=== PATIENT | female | born 1940 | race Caucasian/White ===

== ENCOUNTER → 2018-01-26 | Outpatient (CLI) | payer OTHER ==
[~2018-01-26] MED LIST: ALENDRONATE; ALPRAZOLAM 0.0.25 M1 PO; ANTIVERT25 MG PO; ASPIR 8181 MG PO; DESYREL100 MG; FISH OIL 1,2001 EAC4 PO; HYDROCODONE-AP1 EAC6 PO; KLOR-CON 1010 MEQ PO; LOVASTATIN; MULTIVITAMINS1 EAC7 PO; MYRBETRIQ25 MG PO; NASACORT10.8 ML NASAL; NORCO 5-325 TA1 EACH PO; PRAVACHOL40 MG PO; STRONTIUM PO; TRAZODONE HCL100 MG PO; TRAZODONE HCL50 MG PO; TUMS PO; VALIUM5 MG PO; ZOFRAN ODT4 MG DISSOLVE; [UNRECOGNIZED DRUG - OTHER] PO
== END ==
LOC: M.RAD 09:28
DX: Z12.31 Encounter for screening mammogram for malignant neoplasm of breast (principal); E78.00 Pure hypercholesterolemia, unspecified

== ENCOUNTER 2018-02-19 08:59 | Emergency (ER) | payer OTHER ==
[~2018-02-19] VITALS: Ht 154.9 cm; Wt 61.2 kg
[~2018-02-19 08:59] MED LIST changes: -ANTIVERT25 MG PO; -ASPIR 8181 MG PO; -KLOR-CON 1010 MEQ PO; -TRAZODONE HCL50 MG PO; -TUMS PO; -ZOFRAN ODT4 MG DISSOLVE
[2018-02-19] MEDS ORDERED: TUMS PO (09:11)
[2018-02-19] MEDS ORDERED: TRAZODONE HCL50 MG PO (09:11)
[2018-02-19] MEDS ORDERED: ASPIR 8181 MG PO (09:11)
[2018-02-19] MEDS ORDERED: KLOR-CON 1010 MEQ PO (09:11)
[2018-02-19 09:37] LABS: ABSOLUTE BASOPHILS 0.1 thou/uL (0.0-0.2); ABSOLUTE EOSINOPHILS 0.2 thou/uL (0.0-0.7); ABSOLUTE MONOCYTES 0.4 thou/uL (0.0-1.2); ABSOLUTE NEUTROPHILS 2.1 thou/uL (1.6-8.1); BASOPHILS 1.8 %; EOSINOPHILS 5.3 %; HEMATOCRIT 38.3 % (37.0-47.0); LYMPHOCYTES 27.2 %; MCH 32.7 pg (26.0-34.0); MCHC 33.9 g/dL (28.0-37.0); MCV 96.4 fL (80.0-100.0); MONOCYTES 9.8 %; MPV 8.6 fl. (7.2-11.1); NUCLEATED RBCS 0 /100WBC; PLATELET COUNT* 183 thou/uL (150-400); POLYS 55.9 %; RBC 3.97 mil/uL (4.20-5.00); RDW-CV 12.6 % (10.5-14.5); WBC 3.8 thou/uL (4.0-11.0)
[2018-02-19 09:48] LABS: ANION GAP 2 mmol/L (7-16); BUN 19 mg/dL (7-18); CALCIUM 8.6 mg/dL (8.5-10.1); CHLORIDE 107 mmol/L (98-107); CO2 29 mmol/L (21-32); CREATININE 1.2 mg/dL (0.6-1.3); GLUCOSE 96 mg/dL (70-99); POTASSIUM 3.9 mmol/L (3.5-5.1); SODIUM 138 mmol/L (136-145)
[2018-02-19 09:55] LABS: ALBUMIN 3.9 g/dL (3.4-5.0); ALKALINE PHOSPHATASE 51 U/L (46-116); SGOT 19 U/L (15-37); SGPT 27 U/L (30-65); TOTAL BILIRUBIN 0.2 mg/dL (<0.1-1.0); TOTAL PROTEIN 7.2 g/dL (6.4-8.2); TROPONIN-I LEVEL <0.06 ng/mL (<0.06)
[2018-02-19] MEDS ORDERED: ZOFRAN ODT4 MG DISSOLVE (10:27)
[2018-02-19] MEDS ORDERED: ANTIVERT25 MG PO (10:27)
[2018-02-19 10:46] VITALS: BP 125/74
--- NOTE | 2018-02-20 13:54 | EKG ---
[place] [address] ELECTROCARDIOGRAM REPORT Name: IVANROX [id number] Admission: 02/19/18 Attend Phys: Discharge: 02/19/18 Date of : 40 Report #: [id number] THIS REPORT FOR: //name// [facility] ED Test Date: 2018-02-19 Test Time: 09:50:26 Pat Name: ROX LOVE Department: Room: Gender: F Second Steward: NURA : 1940 Requested By: Cameron Rios Order Number: [id number] MD: John Juarez Measurements Intervals [place] Rate: 74 P: 36 [place]: 142 QRS: 61 QRSD: 87 T: 61 QT: 403 QTc: 448 Interpretive Statements Sinus rhythm Borderline T abnormalities, anterior leads Compared to ECG 12/04/2014 14:09:10 T-wave abnormality now present ST (T wave) deviation no longer present Electronically Signed On 02-20-2018 13:54:32 CDT by John Juarez [email or web address] <ELECTRONICALLY SIGNED> By: Jeannette Juarez MD, [facility] 02/20/18 1354 0950 0950 Jeannette Juarez MD, [facility] /EPI
== END 2018-02-19 10:47 | disposition home or self-care (01) ==
LOC: M.ERS 08:59
PROVIDERS: Emergency Medicine Emergency Medical Services
DX: R42 Dizziness and giddiness (principal); Z88.8 Allergy status to other drugs, medicaments and biological substances; E78.00 Pure hypercholesterolemia, unspecified

== ENCOUNTER → 2018-04-20 | Outpatient (CLI) | payer OTHER ==
[~2018-04-20] MED LIST changes: +ANTIVERT25 MG PO; +ASPIR 8181 MG PO; +KLOR-CON 1010 MEQ PO; +TRAZODONE HCL50 MG PO; +TUMS PO; +ZOFRAN ODT4 MG DISSOLVE
== END ==
LOC: M.RAD 14:56
DX: M85.89 Other specified disorders of bone density and structure, multiple sites (principal); Z78.0 Asymptomatic menopausal state

== ENCOUNTER → 2018-12-22 | Outpatient (CLI) | payer OTHER | LOC: M.MRI 16:08 | DX: M47.816 Spondylosis without myelopathy or radiculopathy, lumbar region (principal); M51.36 Other intervertebral disc degeneration, lumbar region; M48.062 Spinal stenosis, lumbar region with neurogenic claudication; M41.56 Other secondary scoliosis, lumbar region; M51.26 Other intervertebral disc displacement, lumbar region; M51.27 Other intervertebral disc displacement, lumbosacral region; M46.06 Spinal enthesopathy, lumbar region ==

== ENCOUNTER → 2018-12-29 | Outpatient (CLI) | payer OTHER | LOC: M.ULTRA 09:25 | DX: K80.20 Calculus of gallbladder without cholecystitis without obstruction (principal); N28.9 Disorder of kidney and ureter, unspecified; Z88.8 Allergy status to other drugs, medicaments and biological substances; Z88.2 Allergy status to sulfonamides ==

== ENCOUNTER → 2019-01-27 | Day surgery (SDC) | payer OTHER ==
[~2019-01-27] MED LIST changes: +NORCO 5-325 TA1 EAC1 PO; +PRILOSEC OTC20 MG PO
--- NOTE | ~2019-01-27 | OP ---
[facility] [address] [place] [address] OPERATIVE REPORT Name: ROX LOVE MAGNOLIA Room: [facility] M.R.#: [id number] Admission: 01/27/19 Attend Phys: Ben Mitchell Discharge: Date of : 40 Report #: [id number] THIS REPORT FOR: //name// CC: Ben Mitchell Tesha Silvaborn DATE OF SERVICE: 01/27/2019 PREOPERATIVE DIAGNOSIS: Symptomatic cholelithiasis. POSTOPERATIVE DIAGNOSIS: Symptomatic cholelithiasis. OPERATION: Laparoscopic cholecystectomy. SURGEON: Ben Mitchell MD ANESTHESIA: General. ESTIMATED BLOOD LOSS: Minimal. SPECIMEN: Gallbladder. DESCRIPTION OF PROCEDURE: After informed consent was obtained, the patient was brought to the operating room and placed supine. SCDs were placed and working, preoperative antibiotics were administered, general anesthesia was induced. The abdomen was prepped and draped in the usual sterile fashion. A 10-mm incision was made below the umbilicus. Fascia was incised and a trocar was placed. Pneumoperitoneum was established. Three right upper quadrant 5-mm ports were placed. Gallbladder was grasped at the fundus and retracted cephalad. Infundibulum was grasped and retracted laterally. I dissected out the cystic duct and the cystic artery. Cystic duct and artery were clipped and ligated leaving 2 clips on the remaining duct and one on the remaining artery. Gallbladder was then taken off the liver bed with electrocautery. It was placed into an Endopouch and removed. The fascia was then closed with a [id number] 0 Vicryl. Skin was closed with 4-0 Monocryl. Incisions were sealed with Dermabond. COMPLICATIONS: None. DISPOSITION: The patient was taken to recovery in satisfactory condition. By: 0830 0839Ben Mitchell MD /nt
[2019-01-27 06:21] LABS: HEMATOCRIT 41.4 % (37.0-47.0); HEMOGLOBIN 13.9 gm/dL (12.0-15.0); MCH 33.2 pg (26.0-34.0); MCHC 33.6 g/dL (28.0-37.0); MCV 98.6 fL (80.0-100.0); MPV 8.3 fl. (7.2-11.1); RBC 4.19 mil/uL (4.20-5.00); RDW-CV 13.3 % (10.5-14.5); WBC 4.1 thou/uL (4.0-11.0)
[2019-01-27 06:34] LABS: CALCIUM 8.8 mg/dL (8.5-10.1); POTASSIUM 3.9 mmol/L (3.5-5.1)
[2019-01-27 06:39] LABS: ALBUMIN 3.8 g/dL (3.4-5.0); TOTAL BILIRUBIN 0.2 mg/dL (<0.1-1.0)
--- NOTE | 2019-01-27 10:49 | EKG ---
[place] [address] ELECTROCARDIOGRAM REPORT Name: IVANROX [id number] Admission: 01/27/19 Attend Phys: Ben Mitchell Discharge: Date of : 40 Report #: [id number] THIS REPORT FOR: //name// [facility] Test Date: 2019-01-27 Test Time: 06:57:04 Pat Name: ROX LOVE Department: Room: Gender: F Visual Specialist: MARCOS : 1940 Requested By: Ben Mitchell Order Number: [id number] Reading : Michael Leiva Measurements Intervals [place] Rate: 79 P: 55 [place]: 141 QRS: 30 QRSD: 83 T: 30 QT: 364 QTc: 418 Interpretive Statements Sinus rhythm Compared to ECG 02/19/2018 09:50:26 T-wave abnormality no longer present Electronically Signed On 01-27-2019 10:49:10 CDT by Michael Leiva [email or web address] <ELECTRONICALLY SIGNED> By: Michael Leiva MD, [facility] 01/27/19 1049 [id number] [id number] Michael Leiva MD, FACC /EPI
--- NOTE | 2019-01-30 16:06 | PATH ---
[address] [address] PATHOLOGY RPT PROCEDURE Name: ROX LOVE Room: [facility] M.R.#: [id number] Admission: 01/27/19 Date of : 40 Discharge: Report #: [id number] Path Case #: [id number] [facility] Accession Number: [id number] . 01 Material submitted: . gallbladder - GALLBLADDER . 01 Clinical history: . Symptomatic cholelithiasis . 02 Diagnosis: Gallbladder: - Chronic cholecystitis and cholelithiasis. (ALYX:mahogany; 01/30/2019) MBR/01/30/2019 . 02 Electronically signed: . Ru Krause MD, Pathologist NPI- [id number] . 01 Gross description: . The specimen is received in formalin, labeled "krystal Lucas". Received is an intact gallbladder measuring 8.3 x 3.2 x 1.7 cm in greatest dimensions displaying a blue-banks serosal surface. Opening the specimen reveals a velvety, pink-moya, bile-stained mucosa with a gallbladder wall thickness of 0.1 cm. Calculi are present displaying a black and stellate appearance, and no masses or lesions are noted grossly. Hole Filler sections, to include the proximal margin, are submitted in cassette A1. (CAA; 01/27/2019) QAC/QAC . 02 Pathologist provided ICD-10: K80.10 . 02 CPT . 827102 Specimen Comment: A courtesy copy of this report has been sent to Specimen Comment: [phone], . Specimen Comment: Report sent to / DR LAWS Performed at: [address], [place] [id number] MD Justino Carter MD Phone: [phone] Performed at: 02 [facility] [address], [place], [place] [id number] MD Ru Krause MD Phone: [phone]
== END | disposition home or self-care (01) ==
LOC: M.SUR 05:47
PROVIDERS: Surgery
DX: K80.20 Calculus of gallbladder without cholecystitis without obstruction (principal); E78.00 Pure hypercholesterolemia, unspecified; Z98.890 Other specified postprocedural states; Z79.82 Long term (current) use of aspirin; Z79.899 Other long term (current) drug therapy

== ENCOUNTER → 2020-03-25 | Outpatient (CLI) | payer MEDICARE, OTHER | LOC: M.RAD 12:39 | PROVIDERS: ATTEND Registered Nurse Diabetes Educator | DX: Z12.31 Encounter for screening mammogram for malignant neoplasm of breast (principal) ==

== ENCOUNTER → 2020-07-11 | Outpatient (CLI) | payer MEDICARE, OTHER | LOC: M.RAD 13:24 | PROVIDERS: ATTEND Registered Nurse Diabetes Educator | DX: M85.88 Other specified disorders of bone density and structure, other site (principal); Z78.0 Asymptomatic menopausal state ==

== ENCOUNTER → 2021-03-31 | Outpatient (CLI) | payer MEDICARE, OTHER | LOC: M.RAD 10:00 | PROVIDERS: ATTEND Registered Nurse Diabetes Educator | DX: Z12.31 Encounter for screening mammogram for malignant neoplasm of breast (principal) ==

== ENCOUNTER → 2021-04-25 | Outpatient (CLI) | payer MEDICARE, OTHER | LOC: M.RAD 10:31 | PROVIDERS: ATTEND Registered Nurse Diabetes Educator | DX: M85.861 Other specified disorders of bone density and structure, right lower leg (principal) ==